=== PATIENT | male | born 1995 | race Caucasian/White ===

== ENCOUNTER 2017-12-09 16:17 | Emergency (ER) | payer OTHER ==
--- NOTE | 2017-12-09 16:18 | ER Report ---
History and Physical Time Seen By MD: 16:18 HPI/ROS CHIEF COMPLAINT: mood swings HISTORY OF PRESENT ILLNESS: PT states that he has always since he was little had mood swings/depression. States that in the last 6 weeks he feels his symptoms are getting worse. States he feels good and excited and for no reason he then can feel sad or angry. States that he feels like he is" never truly happy and always is a gap". PT did have his girlfriend break up with him 6 months ago but does not feel that is what is causing the increase in mood swings. Pt said "i always set goals for myself and when i reach them instead of feeling good..i just fell like the goal must not have been hard enough". Pt states he was watching the tv show that Alexis Michael hosted and it made him think "he had everything and he still was unhappy and killed himself". States that watching [email or web address] made him want to reach out for help. Pt denies being suicidal. Pt states he was going to go to the [facility] counselor this Monday but when he spoke to his mom he was told to come to ed REVIEW OF SYSTEMS: Constitutional: No fever, no chills. Eyes: No discharge. ENT: No sore throat. Cardiovascular: No chest pain, no palpitations. Respiratory: No cough, no shortness of breath. Gastrointestinal: No abdominal pain, no vomiting. Genitourinary: No hematuria. Musculoskeletal: No back pain. Skin: No rashes. Neurological: No headache. Allergies: Coded Allergies: No Known Drug Allergies (Unverified , 12/09/17) Home Meds No Active Prescriptions or Reported Meds Reviewed Nurses Notes: Yes Hx Smoking: No Hx Substance Use Disorder: Yes (occasional marijuiania) Hx Alcohol Use: Yes Constitutional Vital Sign - Last 24 Hours 12/09/17 16:23 Temp 99.0 Pulse 75 Resp 18 B/P (MAP) 143/101 Pulse Ox 97 O2 Delivery Room Air Physical Exam General Appearance: The patient is alert, has no immediate need for airway protection and no signs of toxicity. Eyes: Pupils equal and round no pallor or injection, EOMI ENT: no pharyngeal erythema or exudates, Mucous membranes are moist, TM are nl b/l Respiratory: There are no retractions, lungs are clear to auscultation. Cardiovascular: Regular rate and rhythm. pulses are equal and symmetrical Gastrointestinal: Abdomen is soft and non tender, no masses, bowel sounds no rmal, no guarding, no rigidity or rebound Neurological: Cranial nerves II-XII grossly intact, no sensory or motor loss Skin: Warm and dry, no rashes. Musculoskeletal: Neck is supple non tender, no vertebral tenderness Extremities are nontender, non swollen and have full range of motion. DIFFERENTIAL DIAGNOSIS: After history and physical exam differential diagnosis was considered for depression, bipolar, boarderline personality Medical Decision Making Data Points Laboratory Hematology Test 12/09/17 16:20 Urine Opiates Screen Negative Urine Barbiturates Screen Negative Ur Tricyclic Antidepressants Screen Negative Urine Phencyclidine Screen Negative Urine Amphetamines Screen Negative Urine Benzodiazepines Screen Negative Urine Cocaine Screen Negative Urine Cannabinoids Screen Positive Chemistry Test 12/09/17 16:20 Urine Opiates Screen Negative Urine Barbiturates Screen Negative Ur Tricyclic Antidepressants Screen Negative Urine Phencyclidine Screen Negative Urine Amphetamines Screen Negative Urine Benzodiazepines Screen Negative Urine Cocaine Screen Negative Urine Cannabinoids Screen Positive Toxicology Test 12/09/17 16:20 Urine Opiates Screen Negative Urine Barbiturates Screen Negative Ur Tricyclic Antidepressants Screen Negative Urine Phencyclidine Screen Negative Urine Amphetamines Screen Negative Urine Benzodiazepines Screen Negative Urine Cocaine Screen Negative Urine Cannabinoids Screen Positive ED Course/Re-evaluation ED Course 12/09/2017 5:37:40 pm Behavioral health came down and spoke with pt for an hour. Pt did not want to be admitted and he not suicidal so I do not feel that is necessary. I do feel that pt needs further follow up outside the hospital with a therapist. Pt was given a packet of resources to utilize by [facility]. Pt is told to return to ed if he develops suicidal thoughts before seeing therapist. Decision to Disposition Date: Dec 09, 2017 Decision to Disposition Time: 17:39 Depart Departure Latest Vital Signs Vital Signs Date Time Temp Pulse Resp B/P (MAP) Pulse Ox O2 Delivery O2 Flow Rate FiO2 12/09/17 16:23 99.0 75 18 143/101 97 Room Air Impression: Primary Impression: Mood disorder Condition: Improved Disposition: HOME OR SELF-CARE Referrals: [facility] New Scripts No Active Prescriptions or Reported Meds Patient Instructions: Mood Disorders (ED) Additional Instructions: It is important that you follow up with a therapist. You were given a list of resources. [facility] does have school therapist however you can also try [facility], [facility], or [facility] [place]. If at anytime you feel you are unsafe or suicidal then please return immediately to the emergency department. SHERIF DE LA PAZ DO Dec 09, 2017 16:18
[2017-12-09 18:02] VITALS: BP 138/86
== END 2017-12-09 18:00 | disposition home or self-care (01) ==
LOC: ER 16:18
DX: F32.9 Major depressive disorder, single episode, unspecified (principal)
CPT/HCPCS: 80305; 99283